=== PATIENT | female | born 1995 | race Caucasian/White ===

== ENCOUNTER 2021-03-09 23:55 | Emergency (ER) | payer OTHER ==
[2021-03-10] MEDS ORDERED: Sodium Chloride 0.9% 10 ML Syringe FLUSH PRN (00:16)
[2021-03-10] MEDS ORDERED: LORazepam 1 MG Tab PO ONE (00:16)
--- NOTE | 2021-03-10 00:19 | EDM.PDOCBH ---
ED HPI GENERAL MEDICAL PROBLEM - General Stated Complaint: ANXIETY Time Seen by Provider: 03/10/21 00:18 Source of Information: Reports: Patient History Limitations: Reports: No Limitations - History of Present Illness INITIAL COMMENTS - FREE TEXT/NARRATIVE: Erica [place] found lo[place],after being reported missing since noon. She is extremely anxious and unable to give much history.She complains of right knee pain-she tripped and fell. - Related Data Allergies Allergy/AdvReac Type Severity Reaction Status Date / Time pseudoephedrine Allergy Cannot Verified 03/10/21 00:17 [From Sudafed] Remember Home Meds: Home Meds Citalopram Hydrobromide [Celexa] 20 mg PO DAILY 03/10/21 [History] ED ROS GENERAL - Review of Systems Review Of Systems: Comprehensive ROS is negative, except as noted in HPI. ED EXAM, BEHAVIORAL HEALTH - Physical Exam Exam: See Below Exam Limited By: Altered Mental Status General Appearance: Alert, Anxious Ears: Normal External Exam Nose: Normal Inspection Throat/Mouth: Normal Inspection Head: Atraumatic, Normocephalic Cardiovascular: Normal Peripheral Pulses, No JVD GI/Abdominal: Normal Bowel Sounds Neurological: Alert, Normal Mood/Affect Psychiatric: Alert, Normal Affect, Agitated, Auditory Hallucinations, Paranoid Thoughts Skin Exam: Warm COURSE, BEHAVIORAL HEALTH COMP - Course Orders, Labs, Meds: Active Orders 24 hr Category Date Time Status DRUG SCREEN, URINE ALERE [URCHEM] Stat Lab 03/10/21 00:16 Ordered HCG QUALITATIVE,URINE [URCHEM] Stat Lab 03/10/21 00:16 Ordered UA W/MICROSCOPIC [URIN] Stat Lab 03/10/21 00:16 Ordered Sodium Chloride 0.9% [Normal Saline] 1,000 ml Med 03/10/21 00:30 Active IV ASDIRECTED Sodium Chloride 0.9% [Saline Flush] Med 03/10/21 00:16 Active 10 ml FLUSH ASDIRECTED PRN Peripheral IV Insertion Adult [OM.PC] Routine Oth 03/10/21 00:15 Ordered Medication Orders Sodium Chloride (Normal Saline) 1,000 mls @ 999 mls/hr IV ASDIRECTED MARE Last Admin: 03/10/21 00:24 Dose: 999 mls/hr Documented by: GIA Sodium Chloride (Sodium Chloride 0.9% 10 Ml Syringe) 10 ml FLUSH ASDIRECTED PRN PRN Reason: Keep Vein Open Last Admin: 03/10/21 00:24 Dose: 10 ml Documented by: GIA Laboratory Tests 03/10/21 03/10/21 03/10/21 Range/Units 00:25 00:25 00:25 WBC 9.9 (3.0-10.3) x10-3/uL RBC 4.41 (3.60-5.20) x10(6)uL Hgb 14.4 (11.4-15.5) g/dL Hct 42.9 (34.2-48.2) % MCV 97.4 (76.7-100.5) fL MCH 32.7 (23.9-33.9) pg MCHC 33.6 (31.9-34.8) g/dL RDW 16.7 H (12.3-16.5) % Plt Count 145 L (151-488) x10(3)uL MPV 8.6 (7.1-12.4) fL Neut % (Auto) 80.5 H (30.8-76.2) % Lymph % (Auto) 8.5 L (18.4-52.1) % [place] % (Auto) 10.7 (4.4-15.7) % Eos % (Auto) 0.0 L (0.6-8.1) % Baso % (Auto) 0.3 (0.2-1.5) % Neut # (Auto) 7.9 H (1.5-6.3) x10-3/uL Lymph # (Auto) 0.8 L (1.0-4.4) x10-3/uL [place] # (Auto) 1.1 H (0.3-1.0) x10-3/uL Eos # (Auto) 0.0 (0.0-0.8) x10-3/uL Baso # (Auto) 0.0 (0.0-0.1) x10-3/uL Sodium 141 (135-145) mmol/L Potassium 3.5 (3.5-5.3) mmol/L Chloride 101 (100-110) mmol/L Carbon Dioxide 19 L (21-32) mmol/L BUN 23 H (7-18) mg/dL Creatinine 1.2 H (0.55-1.02) mg/dL Est Cr Clr Drug Dosing TNP Estimated GFR (MDRD) 54 L (>60) BUN/Creatinine Ratio 19.2 (9-20) Glucose 120 H (80-116) mg/dL Calcium 9.8 (8.6-10.2) mg/dL Total Bilirubin 1.2 (0.1-1.3) mg/dL AST 37 H (5-25) IU/L ALT 38 H (12-36) U/L Alkaline Phosphatase 77 (56-112) IU/L Total Protein 8.4 H (6.0-8.0) g/dL Albumin 4.8 (3.5-5.2) g/dL Globulin 3.6 g/dL Albumin/Globulin Ratio 1.3 Ethyl Alcohol < 0.03 (<0.03) % Medications Generic Name Dose Route Start Last Admin Trade Name Torresq PRN Reason Stop Dose Admin Sodium Chloride 1,000 mls @ 999 mls/hr 03/10/21 00:30 03/10/21 00:24 Normal Saline IV 999 mls/hr ASDIRECTED MARE Administration Sodium Chloride 10 ml 03/10/21 00:16 03/10/21 00:24 Sodium Chloride 0.9% 10 Ml Syringe FLUSH 10 ml ASDIRECTED PRN Administration Keep Vein Open Discontinued Medications Generic Name Dose Route Start Last Admin Trade Name Jerome PRN Reason Stop Dose Admin Ketorolac Tromethamine 30 mg 03/10/21 00:17 03/10/21 00:23 Ketorolac 30 Mg/Ml Sdv IVPUSH 03/10/21 00:18 30 mg ONETIME ONE Administration Lorazepam 1 mg 03/10/21 00:16 03/10/21 00:24 Lorazepam 1 Mg Tab PO 03/10/21 00:17 1 mg ONETIME ONE Administration Departure - Departure Time of Disposition: 01:11 Disposition: Against Medical Advice 07 Condition: Good Clinical Impression: Anxiety - Discharge Information - Problem List & Annotations (1) Anxiety SNOMED Code(s): 02366515 Code(s): F41.9 - ANXIETY DISORDER, UNSPECIFIED Status: Acute Current Visit: Yes (2) Hallucinations SNOMED Code(s): 9128812 Code(s): R44.3 - HALLUCINATIONS, UNSPECIFIED Status: Acute Current Visit: Yes - Problem List Review Problem List Initiated/Reviewed/Updated: Yes - My Orders Last 24 Hours: My Active Orders 03/10/21 00:15 Peripheral IV Insertion Adult [OM.PC] Routine 03/10/21 00:16 DRUG SCREEN, URINE ALERE [URCHEM] Stat HCG QUALITATIVE,URINE [URCHEM] Stat UA W/MICROSCOPIC [URIN] Stat Sodium Chloride 0.9% [Saline Flush] 10 ml FLUSH ASDIRECTED PRN 03/10/21 00:30 Sodium Chloride 0.9% [Normal Saline] 1,000 ml IV ASDIRECTED - Assessment/Plan Last 24 Hours: My Active Orders 03/10/21 00:15 Peripheral IV Insertion Adult [OM.PC] Routine 03/10/21 00:16 DRUG SCREEN, URINE ALERE [URCHEM] Stat HCG QUALITATIVE,URINE [URCHEM] Stat UA W/MICROSCOPIC [URIN] Stat Sodium Chloride 0.9% [Saline Flush] 10 ml FLUSH ASDIRECTED PRN 03/10/21 00:30 Sodium Chloride 0.9% [Normal Saline] 1,000 ml IV ASDIRECTED Plan: She was not able to give a urine sample. A CT and X ray were ordered and she left without them,AMA. She did take 1 mg of Lorazepam before she left,and her did come and take her with him.
[2021-03-10] MEDS: Ketorolac 30 MG/ML SDV IVPUSH ONE ×2 (00:23→01:19)
[2021-03-10] MEDS ORDERED: Sodium Chloride 0.9% 1,000 ML IV SCH (00:30)
== END 2021-03-10 01:00 | disposition left against medical advice (07) ==
LOC: FB.ED 23:55
DX: F41.9 Anxiety disorder, unspecified (principal); Z88.5 Allergy status to narcotic agent
CPT/HCPCS: 36415; 80053; 80307; 85025; 99283; 99284; A9270-GY; J1885; J7030